=== PATIENT | female | born 1960 | race Caucasian/White ===

== ENCOUNTER 2017-10-30 10:50 | Inpatient (IN) | payer BC ==
[~2017-10-30] VITALS: Ht 154.9 cm; Wt 63.0 kg
[2017-11-11] MEDS ORDERED: METHIMAZOLE5 MG PO (16:01)
[2017-11-11] MEDS ORDERED: VITAMIN B122500 MCG PO (16:01)
[2017-11-11] MEDS ORDERED: MULTIVITAMINS1 EAC8 PO (16:01)
[2017-11-11] MEDS ORDERED: VITAMIN C1000 MG PO (16:02)
[2017-11-11] MEDS ORDERED: VITAMIN D31000 UNI1 PO (16:03)
--- NOTE | 2017-11-19 14:27 | NUR ---
11/19/17 1427 Daisy Fallon 1412 PT ARRIVED IN PACU SLEEPY. 1420 AWAKENS TO VERBAL STIMULI. PULLING OXYGEN MASK OFF. O2 REMOVED. SATS 92% ON RA.
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
--- NOTE | 2017-11-19 16:33 | NUR ---
PT STILL C/O NAUSEA. REGLAN GIVEN. LIGHTS DIMMED IN ROOM. COOL CLOTH OVER EYES. SIGNIFICANT OTHER AT BEDSIDE. MOUTH DRY. ENCOURAGE MOUTH SWABS OR ICE CHIPS. PT DENIED THEM AT THIS TIME.
--- NOTE | 2017-11-19 18:11 | NUR ---
TO FLOOR FROM SURGERY AT 1500. PATIENT HAS HAD GOOD PAIN CONTROL. ZOFRAN, REGLAN, AND PHENERGAN GIVEN FOR NAUSEA. RESTING WITH COOL CLOTH OVER EYES. CEDENO IN PLACE. TO TAKE OUT IN AM. LR @ 125. NUBAIN X1 FOR ITCHY NOSE. 1PA. NEEDS TO DANGLE.
--- NOTE | 2017-11-19 21:02 | NUR ---
COOP WITH ASSESSMENT, IVF INFUSING W/O PROBLEMS, F/C INFUSING W/O PROBLEMS. ATE SANDWICH, TOLERATED WELL, NO C/O N/V , NO C/O PAIN
--- NOTE | 2017-11-19 21:07 | NUR ---
PT ABLE TO DANGLE AT EDGE OF BED, TOLERATED WELL
--- NOTE | 2017-11-20 00:36 | NUR ---
resting, eyes closed, no c/o pain, f/c patent
--- NOTE | 2017-11-20 02:12 | NUR ---
DR LALA NOTIFIED OF PTS BP VIA MONITOR 87/48 P 65. AND MANUALLY 80/45 67 P, PT AWAKENS EASILY, DENIES FEELING LIGHTHEADED, ASYMPTOMATIC. WILL WAIT FOR CALL BACK
--- NOTE | 2017-11-20 02:26 | NUR ---
VITALS AMD I&OS DONE AND CHARTED. BEDSIDE TABLE AND CALL LIGHT WITHIN REACH.
--- NOTE | 2017-11-20 02:26 | NUR ---
500 CC BOLUS LR 1X STARTED
--- NOTE | 2017-11-20 03:32 | NUR ---
0321 - will notified again via cell phone message at [phone], about pts bp at 0230 76/45 p61 R arm. at 0240 83/54 p 63 R amr, at 0300 93/54 p 62 Left arm. pt asymptomatic, denies lightheadness. Tolerating po fluids well. UO qs via f/c.
--- NOTE | 2017-11-20 04:00 | NUR ---
AWAKEN EASILY, NO C/O LIGHTHEADNESS BP 92/51 P 62, IVF INFUSING
--- NOTE | 2017-11-20 05:30 | NUR ---
UP TO EDGE OF BED, STOOD UP W/O PROBLEMS, NO C/O LIGHTHEADNESS OR DISSINESS. BACK TO BED, ALERT AND ORIENTED, SCDS INPLACE, F/C INTACT, UO 125CC.PT TOLERATING FLUIDS WELL
--- NOTE | 2017-11-20 08:00 | NUR ---
RECEIVED REPORT AT 0700, FOUND PT IN BED AWAKE. URINE OUTPUT WAS 125ML OF 0600. MD LALA WAS CALLED. SHE SAID SHE WILL BE IN SHORTLY TO ASSESS PT. PT STATES PAIN 06/25.
--- NOTE | 2017-11-20 09:02 | NUR ---
Student nurse entered room, patient was eating breakfast in bed - alert and oriented. Vitals were performed, BP was primary concern at this point, reading was 93/60 which was improvement from previous reading. Head to toe assessment was completed. Neuro check was normal, bowel tones active and present, muscoloskeletal within normal limits, cardiac rate and rythym was within normal limits. Student nurse voiced concern of bibasilar crackles in lungs, which was confirmed by primary nurse at that time. Doctor was notified, patient was provided IS. Medications were administered by student nurse. Student nurse removed pyle catheter 0810. Primary nurse left room, student nurse assisted [employer] with ambulating patient to shower. Patient independently showered once set up. Student nurse and [employer] cleaned room, made bed, assisted patient with post-shower care and ambulating to chair. Patient currently in room with visitor, sitting in chair, not requesting anything at this time.
[2017-11-20] MEDS ORDERED: IRON325 M1 PO (09:25)
--- NOTE | 2017-11-20 09:26 | NUR ---
MED REC COMPLETE
--- NOTE | 2017-11-20 10:00 | NUR ---
WILIAN WAS D/C AT 0810. PT DUE TO VOID. VAG PACKING HAS BEEN REMOVED BY MD LALA. PT IS SL PER MD LALA. BILETERAL LOWER LOBES HAD CRACKLES PRESENT. IS IN USE. ABD SOUNDS ARE PRESENT. VAG BLEEDING IS SMALL. SBP MANNUALLY TAKEN IS 84. MD LALA CALLED. SHE SAID TO KEEP MONITORING. PT WILL RECEIVED SOME PAIN MEDICATION.
--- NOTE | 2017-11-20 10:03 | NUR ---
Student nurse entered room, patient sitting in chair with visitor watching television. Student nurse observed patient ambulating to restroom, patient tried to void but did not feel the urge. Patient ambulated back to chair. Vitals were completed: BP down from previous reading (see vital signs charted for more information). Lungs are equal and clear bilaterally, no edema noted in lower extremeties. Moderate bleeding in vaginal region,pad changed for patient comfort. Patient sitting in chair, no requests at this time.
--- NOTE | 2017-11-20 11:41 | NUR ---
Student nurse and clinical instructor entered room to perform bladder scan, 512 mL was detected. Orders were made to insert a straight catheter to empty bladder. Student nurse and primary nurse completed the straight catheter procedure, 500 mL was drained from bladder. Patient was returned to bed in lowest position, call light within reach, lunch was delivered, and no requests or complaints at this time.
--- NOTE | 2017-11-20 11:44 | NUR ---
PT WAS UNABLE TO VOID BY 1045. BLADDER SCAN SHOWED 512ML. MD LALA WAS CALLED AND AN ORDER FOR A STRAIGHT CATH WAS GIVEN. 500ML URINE WAS COLLECTED WITH STRAIGHT CATH AT 1130. PT NOW HAS 2HRS TO VOID AGAIN. UROJECT WAS USED. PT TOLERATED WELL.
--- NOTE | 2017-11-20 12:13 | NUR ---
Patient finished lunch with visitor. Student nurse and primary nurse assessed lungs, no crackles were identified. Perineal area healing well, minimal bleeding. No edema noted in lower extremities. Patient has agreed to ambulate this afternoon to encourage voiding. Patient is comfortable with call light in reach, makes no complaints or requests at this time.
--- NOTE | 2017-11-20 12:44 | NUR ---
PT IS SITTING IN BED GETTING READY TO EAT LUNCH. HER JADYN IS BY HER SIDE. HE HAS TAKEN THE NEXT FEW DAYS OFF TO CARE FOR PT. SHE SAID PAIN IS FINE AND THAT SHE HAS BEEN ABLE TO REST. PT REQUESTED PRAYER, WILL FOLLOW NEEDED
--- NOTE | 2017-11-20 13:38 | NUR ---
Student nurse entered room, patient visiting family. Assisted patient to restroom, had bowel movement - continued difficulty voiding. Student nurse assisted patient with ambulating around the hospital, returned to the restroom and attempted to void again. Bladder scan performed, >412 mL detected. Patient assisted back to restroom to attempt voiding again, voided 150 mL. Bladder scan performed again, 357 mL detected. Patient instructed to attempt voiding when feels urgency, or in 45 minutes. Patient with family, call light in reach, no complaints or requests at this time.
--- NOTE | 2017-11-20 14:13 | NUR ---
PT IS AWAKE WITH FAMILY AT BEDSIDE. WILL DO ANOTHER VOID AT 1430 AND GO FROM THERE. NO NEW CONCERNS AT THIS TIME. SBP IS >90 AT THIS TIME.
--- NOTE | 2017-11-20 14:26 | NUR ---
CALL FROM OR NURSE PER DR. LALA FOR UPDATE ON PATIENT. INFORMED HER OF BLADDER SCAN RESULTS. NEW ORDER FOR CEDENO CATH TO BE PLACED. UPDATED NURSE
--- NOTE | 2017-11-20 15:10 | NUR ---
Patient ambulated to restroom, difficulty urinating again. Bladder scan performed, >300 mL detected. The decision was made to insert pyle catheter, pyle inserted at 1505. Patient comfortable in bed, no pain complaints, not requesting anything at this time. bed down, rails up, call light in reach, and brakes on when left the room.
--- NOTE | 2017-11-20 15:10 | NUR ---
PT WAS UNABLE TO VOID BY 1445. CEDENO WAS RE-INSERTED AT 1505. PAIN IS 0/10. NO NEW CONCERNS AT THIS TIME.
--- NOTE | 2017-11-20 16:00 | NUR ---
PT IS SLEEPING AT THIS TIME.
--- NOTE | 2017-11-20 16:02 | NUR ---
I ASKED PATIENT HOW SHE WAS DOING AND SHE SAID FINE. PATIENT IN BED WATCHING TV.
--- NOTE | 2017-11-20 17:23 | NUR ---
AT START OF SHIFT SBP WAS <90 AND URINE OUTPUT FROM [id number] WAS ONLY 150ML. MD LALA WAS CALLED A LITTLE AFTER 0700. SHE SAID THAT SHE WAS ON HER WAY. PER MD LALA ORDERS AFER HER ASSESSMENT OF THE PT THE CEDENO WAS D/C AT 0810 AND PT WAS SALINE LOCKED. SBP WAS STILL LOW BUT MD LALA SAID TO JUST MONITOR SINCE PT WAS ASYMPTOMATIC. VOIDING TRIAL WAS NOT SUCCESSFUL AND ANOTHER CEDENO HAD TO BE INSERTED AT 1505 AFTER PT WAS STRAIGHT CATHED AN HOUR PRIOR. BP IS BETTER SO FAR. PT IS TO REMAIN IN HOSPITAL TONIGHT. D/C CEDENO AT 0600 ON 11/21/17. OTHERWISE I HAVE NO NEW CONERNS AT THIS TIME.
--- NOTE | 2017-11-20 19:53 | NUR ---
RECEIVED REPORT FROM DAY SHIFT NURSE. PT IN BED. SL AT THIS TIME. CEDENO IN PLACE. CLEAR YELLOW URINE PRESENT. REPORTS NO PAIN OR NEEDS AT THIS TIME. CALL LIGHT WITHIN REACH.
--- NOTE | 2017-11-20 20:46 | NUR ---
VITALS DONE AND CHARTED. FRESH ICE WATER GIVEN. BEDSIDE TABLE AND CALL LIGHT WITHIN REACH.
--- NOTE | 2017-11-20 22:08 | NUR ---
ASSESSMENT COMPLETED . BOWEL MEDS HELD. PT IS HAVING DIARRHEA. LUNGS CLEAR. HEART REGULAR. SCD'S IN PLACE. SCANT AMOUNT OF LIGHT RED DRAINAGE FROM VAGINA. NANI PAD IN PLACE. IS EDUCATION AND USE WHILE IN ROOM. PAIN 06/25. SCHEDULED MOTRIN GIVEN. REPORTS NO OTHER NEEDS AT THIS TIME.
--- NOTE | 2017-11-21 00:10 | NUR ---
PT APPEARS TO BE SLEEPING. RESPIRATIONS EQUAL AND NONLABORED. CALL LIGHT WITHIN REACH.
--- NOTE | 2017-11-21 02:00 | NUR ---
PT APPEAR TO BE SLEEPING. RESPIRAITONS EQUAL AND NONLABORED. CALL LIGHT WITHIN REACH.
--- NOTE | 2017-11-21 02:30 | NUR ---
PT REPORTED HEADACHE 08/23. HELPED REPOSITIONED PT. PT HAD LARGE LOOSE STOOL. CHANGED BEDDING, CLEANED PT UP. BACK TO BED. CALL LIGHT WITHIN REACH. REPORTS NO OTHER NEEDS AT THIS TIME
--- NOTE | 2017-11-21 04:25 | NUR ---
PT APPEARS TO BE SLEEPING. CALL LIGHT WITHIN REACH. SCD'S IN PLACE. RESPIRAITONS EQUAL AND NONLABORED.
--- NOTE | 2017-11-21 05:08 | NUR ---
PT SLEPT MOST OF THE NIGHT. WAS INCONTINENT OF STOOL X2. VERY LOOSE BM'S. BM MEDICAITONS HELD THIS SHIFT. REPORTS NO PAIN IN ABDOMEN. REPORTED A HEADACHE 08/23. PRN NORCO NOT NEEDED THIS SHIFT. VSS. ON RA. SBA. U/O QS. ENCOURAGE IS. LUNGS CLEAR. SCD'S. CEDENO TO BEDC'D @0600. POST VOIDS TO BE DONE. SCANT AMOUNT OF VAGINAL BLEEDING THIS SHIFT.
--- NOTE | 2017-11-21 05:53 | NUR ---
WILIAN PIZANO. PT HAD SMALL BM. REPORTS FEELIGN "WOOZY" ZOFRAN SUBLING GIVEN. BAVK TO BED. REPORTS NO ABDOMNAL PAIN AT THIS TIME. [facility]
--- NOTE | 2017-11-21 08:01 | NUR ---
Patient attempted to void shortly after pyle catheter removed, unsuccessful. Patient had bowel movement, complains of diarrhea throughout the night. Patient alert and well oriented to situation, cardiac rate and rhythym regular, lungs equal and clear bilaterally, bowel tones present in all four quadrants, pedal pulses equal and present bilaterally, patient makes no complaints of pain at this time - rates pain on a scale of 3 out of 10. Patient informed we will be performing bladder scans every hour to monitor, and is encouraged to use the restroom when she feels the urge - or every 30 minutes Patient eating breakast in bed, bed in lowest position, breaks on, call light in reach, no requests at this time.
--- NOTE | 2017-11-21 08:29 | NUR ---
Bladder scan was performed on patient at 0805, 209 mL detected.
--- NOTE | 2017-11-21 08:52 | NUR ---
Patient was assisted to restroom for shower, showered independently. Performed self-care. Linen was changed in room. Patient was assisted in ambulating around the halls, stated, "feeling much better after the shower". Returned to bed, visitors present, patient was comfortable. Bed in lowest position, brakes on, call light in reach, no requests at this time.
--- NOTE | 2017-11-21 09:21 | NUR ---
Patient urinared 250 mL @ 0900. Bladder scan was performed on patient at 0910,117 mL detected. Patient comfortable, rating pain at 1/2 out of 10. Sitting in bed with visitors, no complaints or requests at this time. Bed in lowest position, brakes on, call light within reach.
--- NOTE | 2017-11-21 09:44 | NUR ---
Patient voided for second time since removal of catheter, 200 mL. Bladder scan performed, 218 mL detected.
--- NOTE | 2017-11-21 10:10 | NUR ---
PT AT BEDSIDE, VOIDS X2, RESIDUAL NOTED OF 117 AND 200 PER EACH. PT TOLERATING AMBULATION, DENIES PAIN, MINIMAL DISCHARGE. SPOUSE AT BEDSIDE. WILL CONTINUE TO MONITOR.
--- NOTE | 2017-11-21 10:12 | NUR ---
Patient voided again, 375 mL. Bladder scan performed, 306 mL detected. Pain is comfortable, reports no pain related to vaginal surgery. Patient reports pain at a 6 out of 10 from hemorrhoid, mainly when moving around. Denies pain medication at this time. Patient is comfortable in bed, bed in lowest position, brakes on, call light within reach, no requests at this time.
--- NOTE | 2017-11-21 10:44 | NUR ---
Patient voided 375 mL. Bladder scan completed, 284 mL detected.patient comfortable in bed, bed in lowest postion, brakes on, call light within reach. No requests at this time.
--- NOTE | 2017-11-21 11:13 | NUR ---
Patient reports feeling extra tired at this time. Patient was provided hemorrhoid medications, instructions and education were given by doctor. Patient verbalizes understanding. Patient in bed, brakes on, bed in lowest position, call light within reach, no requests at this time.
--- NOTE | 2017-11-21 11:48 | NUR ---
Patient voided, 250 mL. Bladder scan performed, 237 mL detected. Patient was served lunch. Upright in bed eating lunch, bed in lowest position, brakes on, call light within reach, no requests at this time.
[2017-11-21] MEDS ORDERED: IBUPROFEN800 MG PO (14:54)
[2017-11-21] MEDS ORDERED: NORCO 5-325 TA1 EACH PO (14:54)
[2017-11-21] MEDS ORDERED: SENNA-DOCUSATE1 EAC1 PO (14:55)
--- NOTE | 2017-11-25 07:58 | OR ---
[facility] [address], [place] [address] Signed DATE OF OPERATION: 11/19/2017 SURGEON: Kenn Arriaga MD PREOPERATIVE DIAGNOSIS: Uterovaginal prolapse. POSTOPERATIVE DIAGNOSIS: Uterovaginal prolapse. PROCEDURES: Total vaginal hysterectomy, bilateral salpingectomy, cystocele repair, and cystoscopy, with left ureteral catheterization, rectocele repair with bilateral sacrospinous cuff suspension. ANESTHESIA: Spinal with IV sedation. ESTIMATED BLOOD LOSS: 100 mL. DRAINS: Lewis catheter. Vaginal packs. INDICATIONS AND FINDINGS: The patient is a 57-year-old female, 2, para 2, who has been having worsening symptoms related to her uterovaginal prolapse. She notes more bulging, as well as urinary hesitancy. She now desires surgical correction. At the time of surgery, she had significant uterovaginal prolapse with the cervix presenting just within the hymenal ring. She had a grade 3 cystocele and grade 2 rectocele. The perineum was very short. DESCRIPTION OF PROCEDURE: The patient was prepped and draped in the dorsal lithotomy position. A weighted speculum was placed and the anterior and posterior lips of the cervix were grasped with single-tooth tenaculum. The cervix was then injected with 10 mL of 1% lidocaine with 1:200,000 epi. The posterior cul-de-sac was opened sharply, and the uterosacral ligaments were grasped on each side with curved Z clamps, divided with the Churchill scissors and suture ligated with 0 Vicryl. At this point, the swan neck speculum was placed in the posterior cul-de-sac. The vaginal mucosa was then circumscribed with a knife and the vaginal mucosa sharply dissected up off the cervix and the anterior cul-de-sac Electronically Signed By: KENN ARRIAGA MD 11/25/17 0758 PATIENT NAME: DESIREE WHATLEY OPERATIVE REPORT DATE OF : 58 REPORT #: [id number] PHYSICIAN: KENN ARRIAGA MD PCP: RICARDO ROY DO REPORT IS CONFIDENTIAL AND NOT TO BE RELEASED WITHOUT AUTHORIZATION [facility] [address], [place] [address] Signed entered at this time. Following this, serial bites were taken on each side incorporating both the anterior and posterior leaves of the peritoneum, taking down the cardinal ligaments and the uterine vessel areas. Each of these were divided and suture ligated with 0 Vicryl. At this point, the lower aspect of the broad ligaments was reached and these were also grasped with curved Z clamps, divided with the Churchill scissors and suture ligated with 0 Vicryl. The patient did have some small fibroids and the uterus was bulkier at the top, such that the broad ligament pedicles could not be grasped because of the size of the uterus. The cervix was thus amputated and a wedge was taken out of the center of the uterus, which allowed the remaining broad ligament pedicles to be clamped across with the curved Z clamps, divided with the Churchill scissors. Each of these pedicles was then free tied with 0 Vicryl and then suture ligated with a 0 Vicryl. The specimen was thus removed. The cuff itself was inspected and appeared to be hemostatic. The patient's left tube was then grasped with a Srinivas clamp, clamped across with the curved Z clamp and excised. A free tie of 0 Vicryl was then placed. The patient's right tube was grasped in the same manner and removed in the same manner as well. The cuff itself appeared to be very loose and because of the fear of future cuff prolapse, the uterosacral ligaments were plicated with interrupted sutures of 0 Ethibond. The last one was also attached to the cuff internally. Following this, the cuff was closed. The angle sutures were placed incorporating the vaginal mucosa exteriorizing the broad ligament pedicles across the peritoneum anteriorly and exiting via the uterosacral ligaments inferiorly. These were done bilaterally and tied laterally. Following this, the peritoneum was identified and closed with a pursestring suture of 3-0 Vicryl. The cuff itself was closed with a running locking stitch of 0 Vicryl. The anterior vaginal wall did have a small cystocele, though the bladder neck appeared to be well suspended and she had no prior history of stress incontinence. The midline incision was made with a knife and the Metzenbaum scissors were used to undermine the vaginal mucosa laterally. The incision was made just above the vaginal cuff up to the bladder neck. This dissection was carried out bilaterally and the perivesical fascia appeared to be very poor and the decision was made to do a pursestring suture x2. The initial one was done more centrally, which reduced the central defect and the 2nd suture was placed more laterally and circumferentially. This reduced the anterior cystocele quite well. The vaginal mucosa was then trimmed a significant amount because of the redundancy of tissue, and this was then closed with a running suture of 2-0 Vicryl. Subsequent to this, cystoscopy was done. The Lewis catheter was removed and the cystoscope was placed. The patient had received IV fluorescein. The patient's right ureteral orifice was immediately visualized and clear fluorescein stained urine was seen to freely egress from the right-hand ureter. However, on the left-hand side, it appeared to be somewhat distorted on that side and while the ureteral orifice could be identified no free urine was seen to come from that side. Because of the distortion and the lack of ureteral continuity it was felt that Electronically Signed By: KENN ARRIAGA MD 11/25/17 0758 PATIENT NAME: DESIREE WHATLEY OPERATIVE REPORT DATE OF : 58 REPORT #: [id number] PHYSICIAN: KENN ARRIAGA MD PCP: RICARDO ROY DO REPORT IS CONFIDENTIAL AND NOT TO BE RELEASED WITHOUT AUTHORIZATION [facility] [address], [place] [address] Signed there was probably a suture compromising this and the most likely candidate was the uterosacral plication. Because of this, the bladder was then drained, and the Lewis catheter replaced and the cuff closure was undone and the sutures, plicating the uterosacral ligaments were removed. These were all removed. Following this, cystoscopy was repeated. The Lewis catheter was removed and the cystoscope was placed. There was no distortion noted of the left ureter, but still no free egress of urine was seen from that side. Because of this, the ureteral orifice was catheterized with a whistle-tip catheter and this was easily placed through the ureter without any obstruction at all. Following this, this was removed and some fluorescein stained urine was seen to come out of that ureteral orifice afterwards. Following this, the cuff was then reclosed in the same manner, but the uterosacral ligament sutures were not replaced. At this point, the rectocele repair was begun. A triangle of tissue was removed from the perineal body and the vaginal mucosa undermined and incised in the midline to the apex of the vagina. The vaginal mucosa was from the underlying tissue with a combination of blunt and sharp dissection and this was carried out to the ischial spines on each side. The sacrospinous ligaments were clearly identified. Because the cuff needed suspension and the uterosacral ligament sutures have been removed, the decision was made to proceed with sacrospinous ligament suspension. The Capio device was used to place a 0 Prolene suture in the mid portion of the sacrospinous ligament for use later. Following this, the defect in the perirectal fascia was attempted to be identified and closed, but the perirectal fascia was very poor tissue and primarily plication of the levator muscles was done using interrupted sutures of 0 Vicryl suture. Following this, the rectal examination was done, which confirmed good reduction of the defect and no sutures compromising the rectal lumen. The Prolene sutures at the sacrospinous ligaments were then sewn to the vaginal cuff inferior to the vaginal mucosa such that this would be a buried suture. These were tied down with appropriate tension such that the apex of the vagina was symmetric. Following this, the vaginal mucosa was trimmed and the vaginal mucosa was closed with a running suture of 2-0 Vicryl from the apex of the vagina to the hymenal ring. The posterior fourchette was recreated with a running suture of 2-0 Vicryl. The perineal body was recreated with interrupted sutures of 2-0 Vicryl and the skin of the perineum was closed with subcuticular sutures of the 2-0 Vicryl. Inspection of the vault showed good length and caliber, as well as good hemostasis. The vaginal canal was then packed with sulfa-coated gauze. The patient was taken to the recovery room in good condition. Kenn Arriaga MD Electronically Signed By: KENN ARRIAGA MD 11/25/17 0758 PATIENT NAME: DESIREE WHATLEY OPERATIVE REPORT DATE OF : 58 REPORT #: [id number] PHYSICIAN: KENN ARRIAGA MD PCP: RICARDO ROY DO REPORT IS CONFIDENTIAL AND NOT TO BE RELEASED WITHOUT AUTHORIZATION [facility] [address] [facility] [place], [place] [address] Signed FLOR/BENJI /[id number] cc: Dr. Ricardo Marshall Copies: CESAR DICKSON MD, MICHAEL JOHN MD ~ Electronically Signed By: KENN ARRIAGA MD 11/25/17 0758 PATIENT NAME: DESIREE WHATLEY OPERATIVE REPORT DATE OF : 58 REPORT #: [id number] PHYSICIAN: KENN ARRIAGA MD PCP: RICARDO ROY DO REPORT IS CONFIDENTIAL AND NOT TO BE RELEASED WITHOUT AUTHORIZATION
== END 2017-11-21 16:00 | disposition home or self-care (01) | DRG 743 ==
LOC: MS 11-19 06:45 → DSVR 11-19 07:35 → MS 11-19 07:35
PROVIDERS: ADMIT Obstetrics & Gynecology
PROC: 0JQC0ZZ Repair Pelvic Region Subcutaneous Tissue and Fascia, Open Approach (ICD-10-PCS; 2017-11-19)
PROC: 0UT97ZZ Resection of Uterus, Via Natural or Artificial Opening (ICD-10-PCS; principal; 2017-11-19 10:00)
PROC: 0UT77ZZ Resection of Bilateral Fallopian Tubes, Via Natural or Artificial Opening (ICD-10-PCS; 2017-11-19 10:00)
PROC: 0JQC0ZZ Repair Pelvic Region Subcutaneous Tissue and Fascia, Open Approach (ICD-10-PCS; 2017-11-19 10:00)
DX: N81.2 Incomplete uterovaginal prolapse (principal); R39.11 Hesitancy of micturition; R11.2 Nausea with vomiting, unspecified; R03.1 Nonspecific low blood-pressure reading; R19.7 Diarrhea, unspecified; K64.9 Unspecified hemorrhoids; E01.0 Iodine-deficiency related diffuse (endemic) goiter; Z79.899 Other long term (current) drug therapy
CPT/HCPCS: 00944; 36415; 80048; 85025; C2631; J0694; J1100; J1644; J1885; J2250; J2274; J2300; J2405; J2550; J2704; J2765; J3010; J7120